=== PATIENT | female | born 1960 | race Caucasian/White ===

== ENCOUNTER → 2020-01-11 | Emergency (ER) | payer BC ==
[~2020-01-11] VITALS: Ht 162.6 cm; Wt 98.2 kg
[~2020-01-11] MED LIST: K and/or MAG REPLACEMENT MC SCH; LORazepam 2 mg/ml vial IV ONE; NO HOME MEDS; POTA20TA19 PO; acetaminophen 325mg tablet PO PRN; apixaban 5mg tablet PO SCH; diltiazem 30mg tablet PO ONE; diltiazem 5mg/ml 5ml inj. IV ONE; diltiazem CD 120mg capsule (once-daily) PO SCH; mag hydrox/Alum hydrox/simeth 30ml oral suspension PO PRN; magnesium 2GM in 50ml NS 50 ML IV ONE; magnesium 2GM in 50ml NS 50 ML IV PRN; magnesium 4gm in 100ml NS 100 ML IV PRN; magnesium Cl slow-release 64mg tablet PO PRN; magnesium hydroxide 30ml (MOM) UD suspension PO PRN; morphine 2 MG/ML inj. syringe IV PRN; ondansetron/PF 4mg/2ml inj IV PRN; potassium CL 10mEq/100ml bag 100 ML IV PRN; potassium Cl 20 mEq SR tablet PO PRN; potassium Cl 20 mEq SR tablet PO STA; sodium chloride 0.45% 1,000 ML IV SCH
[2020-01-12 00:01] LABS: BASOPHILS # (AUTO) 0.1 X10'3 (0-0.2); BASOPHILS % (AUTO) 0.9 % (0-1); EOSINOPHILS # (AUTO) 0.2 X10'3 (0-0.9); EOSINOPHILS % (AUTO) 3.3 % (0-6); HEMATOCRIT 41.6 % (35.0-45.0); HEMOGLOBIN 14.8 g/dl (12.0-16.0); LYMPHOCYTES # (AUTO) 2.5 X10'3 (1.1-4.8); LYMPHOCYTES % (AUTO) 41.7 % (21-51); MEAN CORPUSCULAR HEMOGLOBIN 29.9 PG (27.0-31.0); MEAN CORPUSCULAR HGB CONC 35.7 g/dL (33.0-36.5); MEAN CORPUSCULAR VOLUME 83.8 FL (78-98); MEAN PLATELET VOLUME 7.4 FL (7.4-10.4); MONOCYTES # (AUTO) 0.5 X10'3 (0-0.9); MONOCYTES % (AUTO) 9.1 % (2-12); NEUTROPHILS # (AUTO) 2.7 X10'3 (1.8-7.7); PLATELET COUNT 177 X10'3 (140-440); RED BLOOD COUNT 4.97 X10'6 (4.20-5.60); RED CELL DISTRIBUTION WIDTH 13.9 % (11.5-14.5)
[2020-01-12 00:16] LABS: ALANINE AMINOTRANSFERASE 27 U/L (12-78); ALBUMIN/GLOBULIN RATIO 1.1 (1.1-1.5); ALKALINE PHOSPHATASE 158 IU/L (46-116); BILIRUBIN,TOTAL 0.3 MG/DL (0.1-1.0); BLOOD UREA NITROGEN 12 MG/DL (7-18); CALCIUM 8.9 MG/DL (8.5-10.1); CHLORIDE 101 MMOL/L (99-107); CREATININE 0.75 MG/DL (0.40-0.90); TOTAL CARBON DIOXIDE 25.6 MMOL/L (24-32); TOTAL PROTEIN 7.7 G/DL (6.4-8.2); TROPONIN I < 0.04 NG/ML (0.0-0.05); eGFR 79 ML/MIN
[2020-01-12 00:27] LABS: PLATELET ESTIMATE NORMAL; TOTAL CELLS COUNTED 100
[2020-01-12 00:38] LABS: ANION GAP 13 (8-16); GLUCOSE 240 MG/DL (70-104); POTASSIUM 3.3 MMOL/L (3.5-5.1); SODIUM 140 MMOL/L (135-145)
[2020-01-12 00:41] LABS: ASPARTATE AMINO TRANSFERASE 21 U/L (10-37)
[2020-01-12 01:23] VITALS: BP 139/91
== END | disposition home or self-care (01) ==
LOC: ER 23:41
DX: E87.6 Hypokalemia (principal); I48.91 Unspecified atrial fibrillation
CPT/HCPCS: 36415; 71045; 80053; 84443; 84484; 85025; 93005; 96374; 96375; 99285; J2060; J3475; J3490